=== PATIENT | male | born 1950 | race Caucasian/White ===

== ENCOUNTER 2024-03-15 13:24 | Emergency (ER) | payer OTHER, MEDICAID ==
[~2024-03-15] VITALS: Ht 177.8 cm; Wt 79.8 kg
[2024-03-15 13:40] VITALS: BP_SYST 145; PULSE 85; RESP 16; TEMP 98; O2SAT 98
[2024-03-15] MEDS: KETOROLAC TROMETHAMINE 30 MG VIAL IM ONE (14:50)
[2024-03-15] MEDS ORDERED: LIDO1ADH22 TP (15:22)
[2024-03-15] MEDS ORDERED: IBUP-2018 PO (15:22)
[2024-03-15] MEDS ORDERED: DICL20GE TP (15:22)
== END 2024-03-15 15:45 | disposition home or self-care (01) ==
LOC: SED 13:24
DX: S02.40DA Maxillary fracture, left side, initial encounter for closed fracture (principal); S20.212A Contusion of left front wall of thorax, initial encounter; R51.9 Headache, unspecified; I10 Essential (primary) hypertension; Z85.9 Personal history of malignant neoplasm, unspecified; W18.39XA Other fall on same level, initial encounter; Y93.89 Activity, other specified; Y92.89 Other specified places as the place of occurrence of the external cause; Y99.8 Other external cause status
CPT/HCPCS: 99284; 70450; 71100; 96372; J1885